=== PATIENT | male | born 1940 | race Caucasian/White ===

== ENCOUNTER 2023-07-30 13:00 | Emergency (ER) | payer MEDICARE, OTHER ==
[~2023-07-30] VITALS: Ht 175.3 cm; Wt 235.0 kg
[2023-07-30 13:17] VITALS: TEMP 98
[2023-07-30 16:14] VITALS: BP 152/81; PULSE 74; RESP 18; O2SAT 97
== END 2023-07-30 16:17 | disposition home or self-care (01) ==
LOC: ER 13:01
DX: S09.90XA Unspecified injury of head, initial encounter (principal); M54.2 Cervicalgia; J44.9 Chronic obstructive pulmonary disease, unspecified; W18.30XA Fall on same level, unspecified, initial encounter; Y93.89 Activity, other specified; Y92.89 Other specified places as the place of occurrence of the external cause; Y99.8 Other external cause status
CPT/HCPCS: 70450; 72125; 99284

== ENCOUNTER 2024-10-12 00:20 | Emergency (ER) | payer MEDICARE, OTHER ==
[~2024-10-12] VITALS: Ht 175.3 cm; Wt 95.0 kg
[2024-10-12] MEDS ORDERED: HYDR-3972 PO (01:39)
--- NOTE | 2024-10-12 01:41 | RADIOLOGY REPORT ---
BILATERAL WRISTS: 3 view(s) were obtained HISTORY: WRIST PAIN LEFT COMPARISON: None. FINDINGS: There is an acute impacted and mildly displaced fracture of the distal radius. There is an acute mild ly displaced fracture of the ulnar styloid. There is soft tissue swelling about the wrist. IMPRESSION: 1. Displaced fracture of the distal radius and ulnar styloid as detailed.
--- NOTE | 2024-10-12 01:42 | Physician Documentation ---
History of Present Illness ~ Chief Complaint: Wrist pain Stated Complaint: WRIST PAIN Time Seen by MD: 01:29 OK to notify your PCP?: Yes Source: patient, family Mode of Arrival: POV Exam Limitations: no limitations HPI Chief Complaint: Fall, left wrist injury Caveat: None Independent Historians: None History of Present Illness: Patient is a 84-year-old man who got up out of bed this morning in ended up falling onto his left outstretched hand. Patient states that his pain is currently 4/10 and constant. Pain is worse with attempts at movement. Patient states that he knew he broke his wrist when he fell. Patient denies hitting his head. Patient denies any other injuries. Patient isn't on any blood thinners. Review of systems: All systems were reviewed and are negative except for what is indicated in the history of present illness. Past Medical History: COPD, depression Past Surgical History: Noncontributory Social History: , fired educational advisor, no tobacco use, occasional alcohol use Medications: Reviewed as documented Nursing Notes Allergies: Reviewed as documented in Nursing Notes Tetanus within 5 years: No Medication Reconciliation Allergies: Coded Allergies: No Known Allergies (Unverified , 07/30/23) Past Medical History Past Medical History: COPD Past Surgical History: noncontributory Review of Systems All Other Systems at this time: Reviewed and Negative ROS Patient denies any other acute symptoms other than above. All other systems are negative Physical Exam Vital Signs: RN Vital Signs have been reviewed: Yes, Temperature: 98.2, Source: Temporal, Heart Rate: 78, Respiratory Rate: 14, BP: 146/77, Pulse Oximetry: 96, Weight: 95.000 Oxygen Flow Rate: 0 Pulse Oximetry Reflects: adequate oxygenation Physical Exam General Appearance: No distress HEENT: Normal OP, moist oral mucosa, PERRL, EOMI, head and face. Traumatic Neck: supple, normal ROM, trachea midline Pulmonary: No respiratory distress, CTA, BS equal Cardiac: RRR, no murmur, rub or gallop, GI: nondistended, soft, nontender, normal bowel sounds, no guarding, no rebound Extremities: LEFT WRIST IS SWOLLEN AND DIFFUSELY TENDER. DECREASED RANGE OF MOTION OF THE LEFT WRIST. REMAINING EXTREMITIES APPEAR ATRAUMATIC Skin: intact, dry, warm, no rashes Neuro: AAOx3, speech is clear, no focal motor weakness Psych: normal affect, good eye contact, no apparent hallucination, normal speech Procedures Splinting Hand-Made Type: orthoglass Splint: sugar-tong Pre-Proc Neuro Vasc Exam: normal Post-Proc Neuro Vasc Exam: normal Splint Placed By: international flight attendant Tolerated Procedure Well?: yes, no complications Progress Results/Orders Results/Orders Orders - BROOKE KRISHNAN MD Wrist, Complete (3vw Min) (10/12/24 00:35) Hydrocodone/Apap 10/325 ([place] 10/325mg (10/12/24 01:35) Application Sugar Tong Splint (10/12/24 ) * Arm Sling To Be Placed Overn (10/12/24 01:35) Completed Orders - BROOKE KRISHNAN MD Wrist, Complete (3vw Min) (10/12/24 00:35) Vital Signs 10/12/24 00:24 Temp 98.2 Pulse 78 Resp 14 B/P (MAP) 146/77 Pulse Ox 96 O2 Flow Rate 0 Medical Decision Making Findings Differential diagnosis includes but is not limited to: Distal radius fracture, distal ulnar fracture, carpal fracture X-rays Left wrist, three views, indication: Trauma Impression: Comminuted distal radius fracture that is impacted. Soft tissue swelling. Emergency department course/medical decision-making: Patient presents after having fallen at home and fractured his left distal radius. Patient is neurovascularly intact before and after splint application. Orthoglass sugar-tong splint applied and patient given a sling. Patient is given [place] 10 mg here and a prescription for [place]. Patient will be referred to orthopedics. He will follow up with his primary care doctor in two days. Patient is stable for discharge. All the above reviewed with the patient. He is instructed to apply cold compresses over the next 72 hours. PATIENT'S FRACTURES COMMINUTED AND INTRA-ARTICULAR. CLOSED REDUCTION IS NOT GOING TO BE PERFORMED. ALIGNMENT IS ADEQUATE AT THIS TIME. Departure Time of Disposition: 01:43 Disposition: 01 HOME / SELF CARE / HOMELESS Impression: Primary Impression: Radius fracture Qualified Codes: S52.572A - Other intraarticular fracture of lower end of le ft radius, initial encounter for closed fracture Condition: Stable Discharge Instructions: Wrist Fracture Treated With Immobilization Additional Instructions: FOLLOW UP WITH YOUR PRIMARY CARE DOCTOR SCHEDULED IN TWO DAYS. YOU ARE BEING REFERRED TO DR. ROSAS OUR ORTHOPEDIST. APPLY COLD COMPRESSES OVER THE NEXT 72 HOURS AND KEEP THE ARM ELEVATED. Referrals: HALEIGH ROSAS Jr., MD Prescriptions Hydrocodone Bit/Acetaminophen (Hydrocodon-Acetaminophn 10-325 tablet) 10mg- 325mg Tablet 1 TAB PO TID PRN PRN for pain for 7 Days, #20 TAB Prov: DAMION PENA [facility] 10/12/24 Education Educated: Patient, Family Educated regarding: diagnosis, treatment, need for follow up Signature Scribe Signature: No scribe Attestation: No scribe BROOKE KRISHNAN MD Oct 12, 2024 01:42
[2024-10-12] MEDS: HYDROcodone/acetaminophen 10/325mg tab PO ONE (01:58)
[2024-10-12 02:55] VITALS: BP 142/77; PULSE 80; RESP 16; TEMP 98.2; O2SAT 96
== END 2024-10-12 02:58 | disposition home or self-care (01) ==
LOC: ER 00:20
DX: S52.502A Unspecified fracture of the lower end of left radius, initial encounter for closed fracture (principal); S52.602A Unspecified fracture of lower end of left ulna, initial encounter for closed fracture; J44.9 Chronic obstructive pulmonary disease, unspecified; F32.A Depression, unspecified; W19.XXXA Unspecified fall, initial encounter; Y93.89 Activity, other specified; Y92.009 Unspecified place in unspecified non-institutional (private) residence as the place of occurrence of the external cause; Y99.8 Other external cause status
CPT/HCPCS: 29125; 73110; 99284; A4565; A6449